=== PATIENT | female | born 1990 | race African-American/Black ===

== ENCOUNTER 2022-08-31 10:57 | Outpatient (CLI) | payer OTHER, SELFPAY ==
--- NOTE | ~2022-08-31 | MMUS_ITS ---
EXAMINATION: MM diagnostic renetta BI w jl, US breast LT limited HISTORY: Probable left breast lump near the area low with associated pain. No discharge. No history o f trauma or infection. TECHNIQUE: Additional 3-D tomosynthesis images of the left breast were performed and synthetic 2-D im ages were generated. CAD analysis was submitted and interpreted. High resolution Limited left breast ultrasound was performed. COMPARISON: No prior studies for comparison. BREAST PARENCHYMAL COMPOSITION: The breasts are heterogeneously dense, which may obscure small masses FINDINGS: MAMMOGRAPHIC FINDINGS: There are no suspicious masses, calcifications or architectural distortion in the right breast to sug gest malignancy. There is a focal mass in the subcutaneous tissues of the left breast in the subareol ar location. ULTRASOUND: Limited left breast ultrasound: In the subareolar location of the left breast there is a complex part ially cystic oval mass with heterogeneous internal echoes. This mass measures 3.1 x 2.7 x 0.8 cm with out significant posterior features. There is parallel orientation. There is marginal vascularity. IMPRESSION: 1. Complex 3.1 cm subareolar mass of the left breast corresponding to the area of palpable and mammog raphic abnormality. 2. Left breast biopsy recommended. BI-RADS category 4, suspicious findings. Reviewed, dictated and finalized at location A. IMPRESSION: 1. Complex 3.1 cm subareolar mass of the left breast corresponding to the area of palpable and mammographic abnormality. 2. Left breast biopsy recommended. BI-RADS category 4, suspicious findings.
== END 2022-08-31 10:58 | disposition home or self-care (01) ==
PROVIDERS: PCP Nurse Practitioner; Visit Provider Nurse Practitioner
DX: N63.0 Unspecified lump in unspecified breast (principal); R92.8 Other abnormal and inconclusive findings on diagnostic imaging of breast
CPT/HCPCS: 76642; 77062; 77066; G0279

== ENCOUNTER 2023-04-02 09:26 | Emergency (ER) | payer OTHER, SELFPAY ==
[2023-04-02 09:29] VITALS: BP 127/68; PULSE 64; RESP 16; TEMP 36.6; O2SAT 100
[2023-04-02 09:35] VITALS: BP 120/74; PULSE 71; PULSE 73; RESP 18; O2SAT 100
--- NOTE | 2023-04-02 09:45 | ED.DENTAL ---
HPI - Dental/Oral General Chief complaint: Dental/Oral Stated complaint: dental pain Time Seen by Provider: 04/02/23 09:34 History of Present Illness HPI Narrative: Patient is a 32-year-old female here for evaluation of right lower dental pain x3 days. Patient states that she went and saw dentist upon onset of her symptoms and was told she had a cracked tooth in that area and she would need a filling or dental extraction. She has scheduled this for June but states her pain was severe and she could not wait. She took 1 Tylenol yesterday but no medicines today. She denies any trismus, fevers, facial swelling. Related Data Allergies Allergy/AdvReac Type Severity Reaction Status Date / Time No Known Allergies Allergy Verified 04/02/23 09:31 Review of Systems Review of Systems: Gen.: Denies fevers or chills Eyes: Denies eye pain or visual change ENT: Denies congestion Respiratory: Denies shortness of breath or cough CV: Denies chest pain or palpitations GI: Denies abdominal pain nausea, emesis or diarrhea denies burning, urgency, frequency or hematuria Musculoskeletal: Denies back pain or muscle pain Neuro: Denies numbness, tingling, weakness or focal weakness Skin: Denies rash Except as documented, all other systems reviewed and negative Exam Narrative: Gen: Alert, oriented, no acute distress Eyes: EOMI, no icterus Pulm: Respirations even and unlabored, symmetric thorax expansion, no audible stridor or visible cyanosis ENT: Tooth #30 is cracked. Poor dentition throughout. No trismus. Tolerating secretions. CV: Regular rate per telemetry GI: No distension, no voluntary/involuntary guarding Neuro: AOx4, moves all extremities without apparent difficulty or weakness, follows commands Skin: No jaundice, no visible bruising, rashes, lesions or wounds on exposed skin Psych: Normal mood/affect, insight/judgement good, adequate fund of knowledge, recent/remote memory intact Course Vital Signs Vital signs: Vital Signs Temperature 97.8 F 04/02/23 09:29 Pulse Rate 64 04/02/23 09:29 Respiratory Rate 16 04/02/23 09:29 Blood Pressure 127/68 04/02/23 09:29 Pulse Oximetry 100 04/02/23 09:29 Temperature 97.8 F 04/02/23 09:29 Pulse Rate 73 04/02/23 09:35 Respiratory Rate 18 04/02/23 09:35 Blood Pressure 120/74 04/02/23 09:35 Pulse Oximetry 100 04/02/23 09:35 MDM - Dental/Oral MDM Narrative Medical decision making narrative: Patient presents for dental pain due to suspected dental jose m. Patient not immunosuppressed, afebrile and well appearing with patent airway, have low suspicion for deep space infection or any concern for airway compromise. Based on history, physical, and work up. No evidence of RPA, STUDIO DESIGNER, Frank?s angina, periapical abscess. Instructed patient to continue to treat pain with ibuprofen/acetaminophen until they see a dentist. Will send home with antibiotics and ibuprofen 600s. Patient discharged home and will follow up with dentist. Discussed return precautions for odontogenic infections and other dental pain emergencies. Discharge Plan Discharge Clinical Impression: Toothache Patient Disposition: Home, Self-Care Condition: Stable Instructions: Antibiotic Form, Toothache (ED) Additional Instructions: Please follow-up with your dentist next week. Take the antibiotics as directed. Alternate between Tylenol and ibuprofen. You can take 1000mg of Tylenol every 6 hours and 600 mg Motrin/ibuprofen every 8 hours. Return to the emergency department if you are worse, you cannot swallow your own spit, you have other concerns. Prescriptions: New amoxicillin 500 mg capsule 500 mg PO Q12H Qty: 10 0RF ibuprofen 600 mg tablet 600 mg PO TID PRN (Reason: pain) Qty: 20 0RF Follow-up/Referrals: Gabriel,Linette Thomas NP [Primary Care Provider] - Stand Alone Forms: Work/School Release IP
[2023-04-02] MEDS: KETOROLAC 30 MG/ML VIAL (*BKC) IM (09:50)
[2023-04-02 10:03] VITALS: BP 110/75; PULSE 65; RESP 18; O2SAT 100
== END 2023-04-02 10:02 | disposition home or self-care (01) ==
LOC: ANHED 09:48
PROVIDERS: Emergency Provider Physician Assistant; PCP Nurse Practitioner
DX: K08.89 Other specified disorders of teeth and supporting structures (principal)
CPT/HCPCS: 96372; 99283; J1885

== ENCOUNTER 2023-04-27 08:59 | Emergency (ER) | payer OTHER, SELFPAY ==
[2023-04-27 09:01] VITALS: BP 130/67; PULSE 71; RESP 16; TEMP 36.6; O2SAT 100
--- NOTE | 2023-04-27 09:19 | ED.SKABFB ---
HPI - Skin/Abscess/Foreign Bdy General Chief complaint: Skin/Abscess/Foreign Body Stated complaint: abcess Time Seen by Provider: 04/27/23 09:08 History of Present Illness HPI narrative: this 32-year-old female patient with no significant past medical history related to today's complaint presents to the emergency room independently ambulatory with complaints of having a sore abscess in the right groin. She states it has been there for approximately 2 days and it is irritated by wearing undergarments. There is no drainage or pointing. She endorses she has been shaving around the area. No fevers. She has no other symptoms to report such as chest pain, dyspnea, nausea, vomiting, diarrhea the only thing that makes the pain feel better was applying heat and having nothing touch the area. Severity scale (1-10): 6 Related Data Allergies Allergy/AdvReac Type Severity Reaction Status Date / Time No Known Allergies Allergy Verified 04/27/23 09:16 Exam Const: General: healthy appearing, no acute distress and alert Nutritional Appearance: well nourished Orientation/consciousness: patient oriented x3 Limitations: no limitations HENMT: Head: normal to inspection Ears: external ears normal Face/Nose/Sinus: Normal external nose present and no nasal discharge noted Eyes: Conjunctivae: conjunctivae normal Neck: Neck: normal visual inspection and no lymphadenopathy Chest: Chest palpation & inspection: normal inspection of the chest Resp: Effort & Inspection: normal respiratory effort Auscultation: clear to auscultation bilaterally Cardio: Rate: regular rate Rhythm: regular rhythm Heart sounds: no murmurs GI: Inspection: non-distended GI Palp: Yes Soft to palpation, Yes Tenderness to palpation present (GI), No Guarding due to palpation present (GI) and No Rigid due to palpation Auscultation: normal bowel sounds Back/Spine/Pelvis: Back: no CVA tenderness Skin: General skin exam: normal color, no jaundice and no pallor Rashes: no rashes Wounds: wounds noted ( in right groin. Firm area without induration or pointing. No fluctuance.) Abscess size ( 3 mm by 10 mm) and other ( no edema or erythema. Not ready to be drained.); no drainage and without any surrounding erythema Neuro: General: patient oriented x3 and moves all extremities Extrem: General: normal to inspection and no pedal edema Psych: Mental Status: mental status grossly normal Affect: normal affect Course Course Emergency Course: Based upon patient's physical exam patient's abscess is not ready to be drained at this time. Discussed at length with patient how to care for at home including washing with antibacterial soap and water, applying heat to help draw infection out to the surface of the wound to allow for easier drainage into taking antibiotics that will be prescribed. She is advised to not shave in the affected area. She is advised follow-up with primary care physician within the next week or if new or worsening symptoms return to the emergency room. Vital Signs Vital signs: Vital Signs Temperature 97.9 F 04/27/23 09:01 Pulse Rate 71 04/27/23 09:01 Respiratory Rate 16 04/27/23 09:01 Blood Pressure 130/67 04/27/23 09:01 Pulse Oximetry 100 04/27/23 09:01 Oxygen Delivery Room Air 04/27/23 09:01 Temperature 97.9 F 04/27/23 09:01 Pulse Rate 71 04/27/23 09:01 Respiratory Rate 16 04/27/23 09:01 Blood Pressure 130/67 04/27/23 09:01 Pulse Oximetry 100 04/27/23 09:01 Oxygen Delivery Room Air 04/27/23 09:01 MDM - Skin/Abscess/Foreign Bdy MDM Narrative Medical decision making narrative: See hospital course. Patient does not meet sepsis criteria discharged home with oral antibiotics. Differential Diagnosis Differential diagnosis: Likely abscess of skin or subcutaneous tissue, cellulitis, insect bites and contact dermatitis Discharge Plan Discharge Clinical Impression: Abscess of skin or subcutaneous
== END 2023-04-27 09:51 | disposition home or self-care (01) ==
PROVIDERS: Emergency Provider Nurse Practitioner Adult Health
DX: L02.214 Cutaneous abscess of groin (principal)
CPT/HCPCS: 99283

== ENCOUNTER 2023-07-26 08:00 | Emergency (ER) | payer OTHER, SELFPAY ==
[2023-07-26 08:01] VITALS: BP 134/63; PULSE 64; RESP 18; TEMP 37; O2SAT 100
[2023-07-26 08:39] LABS: Strep Group A RT-PCR NOT DETECTED (Negative)
[2023-07-26 08:53] VITALS: BP 126/74; PULSE 72; RESP 18; O2SAT 100
--- NOTE | 2023-07-26 09:18 | ED.EAR ---
HPI - Ear Problem General Chief complaint: Ear Stated complaint: Ears and throat Time Seen by Provider: 07/26/23 09:18 Source: patient Mode of arrival: ambulatory Limitations: no limitations History of Present Illness HPI Narrative: Jet is a 32-year-old female patient presenting to the clinic today with complaints of bilateral ear pain and sore throat x3 days. She reports she has had some nasal congestion that just started this morning. She denies any fever or chills. Denies any headache. Denies any known exposure to anyone with COVID, flu, or strep. Related Data Allergies Allergy/AdvReac Type Severity Reaction Status Date / Time No Known Allergies Allergy Verified 07/26/23 08:51 Review of Systems Review of Systems: Pertinent positives per HPI. Patient denies any fever, chills, rash, headache, visual changes, dizziness, cough, shortness of breath, chest pain, palpitations, nausea, vomiting, diarrhea, constipation, abdominal pain, or any urinary issues. PMFSH Comments At the time of my signature, I reviewed and agree with the nursing past medical, surgical, social, and family history. There is no relevant family history pertinent to the patient complaint. Exam Narrative: General: Well-developed, well nourished, in no apparent distress Head: Normocephalic, atraumatic Eyes: Pupils equally round and reactive to light bilaterally, EOM intact, sclera and conjunctive clear, no discharge, lids normal Ears: TMs intact and congested, ear canals clear, no drainage, grossly hearing normal. Nose: Nares patent, clear nasal discharge, no inflammation, no sinus tenderness. Mouth: Oral pharynx mildly red without lesions or masses, good dentition, MMM. Neck: Supple, trachea midline, no enlargement of anterior or posterior cervical nodes, no thyroid masses or goiter palpable. Cardio: Regular rate and rhythm, s1 and s2 normal, no murmur appreciated. Resp: Clear to auscultation bilaterally, no rhonchi, rales, wheezing or rubs Course Course Emergency Course: Portions of this record may have been created with voice recognition software. Vital Signs Vital signs: Vital Signs Temperature 37.0 C 07/26/23 08:01 Pulse Rate 64 07/26/23 08:01 Respiratory Rate 18 07/26/23 08:01 Blood Pressure 134/63 07/26/23 08:01 Pulse Oximetry 100 07/26/23 08:01 Oxygen Delivery Room Air 07/26/23 08:01 Temperature 37.0 C 07/26/23 08:01 Pulse Rate 72 07/26/23 08:53 Respiratory Rate 18 07/26/23 08:53 Blood Pressure 126/74 07/26/23 08:53 Pulse Oximetry 100 07/26/23 08:53 Oxygen Delivery Room Air 07/26/23 08:01 Vital signs reviewed Medical Decision Making MDM Narrative Medical decision making narrative: At the time of visit patient is resting on the exam table. Strep screen was obtained was negative. We will send strep for culture. I suspect patient has URI/ eustachian tube dysfunction and pharyngitis. Will send in prescription for prednisone. Supportive measures were discussed with the patient she voiced understanding discharge instructions and agrees to treatment plan. Differential Diagnosis Differential Diagnosis: Otitis media, otitis externa, eustachian tube dysfunction, strep pharyngitis, COVID, influenza, viral infection, allergic rhinitis Vital Signs Vital Signs: Vital Signs Temperature 37.0 C 07/26/23 08:01 Pulse Rate 64 07/26/23 08:01 Respiratory Rate 18 07/26/23 08:01 Blood Pressure 134/63 07/26/23 08:01 Pulse Oximetry 100 07/26/23 08:01 Oxygen Delivery Room Air 07/26/23 08:01 Temperature 37.0 C 07/26/23 08:01 Pulse Rate 72 07/26/23 08:53 Respiratory Rate 18 07/26/23 08:53 Blood Pressure 126/74 07/26/23 08:53 Pulse Oximetry 100 07/26/23 08:53 Oxygen Delivery Room Air 07/26/23 08:01 Lab Data Labs: Lab Results 07/26/23 Range/Units 08:09 Group A Strep (PCR) Not detected (Negative) Grp A Beta Strep Ag Cance
== END 2023-07-26 09:40 | disposition home or self-care (01) ==
PROVIDERS: Emergency Medicine; Emergency Provider Nurse Practitioner Family
DX: H69.93 Unspecified Eustachian tube disorder, bilateral (principal); J06.9 Acute upper respiratory infection, unspecified; J02.9 Acute pharyngitis, unspecified
CPT/HCPCS: 87651; 99283